=== PATIENT | female | born 1960 | race Caucasian/White ===

== ENCOUNTER 2022-10-11 08:29 | Day surgery (SDC) | payer OTHER ==
[~2022-10-11] VITALS: Ht 167.6 cm; Wt 89.4 kg
[2022-10-11] MEDS ORDERED: fentaNYL citrate 0.05 MG/ML VIAL ONE (11:13)
[2022-10-11] MEDS ORDERED: LIDOCAINE 2% 100 MG/5 ML UJET TP ONE (11:14)
[2022-10-11] MEDS ORDERED: fentaNYL citrate 0.05 MG/ML VIAL IVP ONE (12:05)
== END 2022-10-11 12:25 | disposition home or self-care (01) ==
LOC: MDS 08:29 → MMU 09:01 → MDS 12:25
PROVIDERS: ATTEND Internal Medicine Gastroenterology
DX: Z12.11 Encounter for screening for malignant neoplasm of colon (principal); K57.30 Diverticulosis of large intestine without perforation or abscess without bleeding; E78.5 Hyperlipidemia, unspecified; G43.909 Migraine, unspecified, not intractable, without status migrainosus; K21.9 Gastro-esophageal reflux disease without esophagitis; Z20.822 Contact with and (suspected) exposure to COVID-19; M19.90 Unspecified osteoarthritis, unspecified site; Z80.8 Family history of malignant neoplasm of other organs or systems; Z90.49 Acquired absence of other specified parts of digestive tract
CPT/HCPCS: 45378; 87426; J3010